=== PATIENT | male | born 1945 | race Caucasian/White ===

== ENCOUNTER 2017-04-21 17:50 | Inpatient (IN) | payer OTHER ==
[~2017-04-21] VITALS: Ht 205.7 cm; Wt 108.9 kg
--- NOTE | ~2017-04-21 | EKG ---
[place] [address] [facility] [employer] [place] [address] ELECTROCARDIOGRAM REPORT Name: MARIELALIBORIO Room #: 443-P ADM IN M.R.#: [id number] Admission: 04/21/17 Attend Phys: James Bronson MD Discharge: Date of : 43 Report #: [id number] THIS REPORT FOR: //name// [facility] ED Test Date: 2017-04-21 Test Time: 18:01:05 Pat Name: LIBORIO SIERRA Department: Room: 443 Gender: M Car Loader: SANDRA : 1945 Requested By: Yuko Morgan Order Number: [id number] MD: Jeffrey Mohr Measurements Intervals [place] Rate: 79 P: 67 NC: 186 QRS: 68 QRSD: 84 T: 45 QT: 284 QTc: 326 Interpretive Statements Sinus rhythm Frequent ventricular premature complexes Nonspecific ST and T wave abnormality No previous ECG available for comparison Electronically Signed On 04-22-2017 8:07:57 [address] [employer] by Jeffrey Mohr [email or web address] <ELECTRONICALLY SIGNED> By: Jeffrey Mohr MD, [facility] 04/22/17 0807 180 00 Jeffrey Mohr MD, FACC /EPI
[2017-04-21 18:08] VITALS: BP 140/65
[2017-04-21 21:07] LABS: ABSOLUTE NEUTROPHILS 7.7 thou/uL (1.4-8.2); BASOPHILS 0.8 % (0.0-2.0); EOSINOPHILS 2.5 % (0.0-3.0); HEMATOCRIT 41.6 % (42.0-52.0); HEMOGLOBIN 14.1 gm/dL (14.0-18.0); LYMPHOCYTES 23.2 % (24.0-44.0); MCH 29.9 pg (26.0-34.0); MCHC 33.9 g/dL (28.0-37.0); MCV 88.3 fL (80.0-100.0); MONOCYTES 10.8 % (1.0-8.0); PLATELET COUNT 157 thou/uL (150-400); POLYS 62.7 % (36.0-66.0); RBC 4.71 mil/uL (4.50-6.00); RDW 14.3 % (10.5-14.5); WBC 12.3 thou/uL (4.0-11.0)
[2017-04-21 21:14] LABS: CALCIUM 8.8 mg/dL (8.5-10.1); CREATININE 1.1 mg/dL (0.7-1.3); POTASSIUM 4.2 mmol/L (3.5-5.1)
[2017-04-21 21:20] LABS: ALBUMIN 3.5 g/dL (3.4-5.0); TOTAL BILIRUBIN 0.6 mg/dL (<0.1-1.0); TOTAL PROTEIN 6.8 g/dL (6.4-8.2)
[2017-04-21] MEDS ORDERED: RANITIDINE 150150 M1 PO (21:33)
[2017-04-21] MEDS ORDERED: PRIMIDONE 250M250 MG PO (21:36)
[2017-04-21] MEDS ORDERED: FINASTERIDE5 MG PO (21:37)
[2017-04-21] MEDS ORDERED: CARDURA4 MG PO (21:38)
[2017-04-21] MEDS ORDERED: MYRBETRIQ50 MG PO (21:40)
[2017-04-21] MEDS ORDERED: THEOCHRON300 MG PO (21:40)
[2017-04-21] MEDS ORDERED: STIOLTO RESPIMAT4 GM INH (21:45)
[2017-04-21] MEDS ORDERED: PROAIR RESPICL90 MCG INH (21:47)
[2017-04-21] MEDS ORDERED: OMEPRAZOLE 20 M20 MG PO (22:06)
[2017-04-21 22:28] VITALS: BP 132/68
[2017-04-21 22:56] VITALS: BP 114/56
[2017-04-22 03:44] VITALS: BP 111/50
[2017-04-22 06:17] LABS: HEMATOCRIT 38.4 % (42.0-52.0); HEMOGLOBIN 13.1 gm/dL (14.0-18.0); MCH 29.9 pg (26.0-34.0); MCHC 34.1 g/dL (28.0-37.0); MCV 87.6 fL (80.0-100.0); RBC 4.38 mil/uL (4.50-6.00); RDW 14.6 % (10.5-14.5); WBC 10.9 thou/uL (4.0-11.0)
[2017-04-22 06:28] LABS: CALCIUM 8.3 mg/dL (8.5-10.1); POTASSIUM 3.9 mmol/L (3.5-5.1)
[2017-04-22 08:00] VITALS: BP 103/71; BP 158/92
[2017-04-22 16:00] VITALS: BP 117/58
[2017-04-22 19:42] VITALS: BP 105/63
[2017-04-23 03:39] VITALS: BP 125/70
[2017-04-23 04:01] LABS: CALCIUM 8.3 mg/dL (8.5-10.1); CREATININE 1.1 mg/dL (0.7-1.3)
[2017-04-23 04:02] LABS: HEMATOCRIT 38.4 % (42.0-52.0); HEMOGLOBIN 13.1 gm/dL (14.0-18.0); MCH 30.3 pg (26.0-34.0); MCHC 34.3 g/dL (28.0-37.0); MCV 88.5 fL (80.0-100.0); RBC 4.33 mil/uL (4.50-6.00); RDW 14.4 % (10.5-14.5); WBC 8.2 thou/uL (4.0-11.0)
[2017-04-23 08:00] VITALS: BP 132/81
[2017-04-23 16:00] VITALS: BP 125/70
[2017-04-23 19:25] VITALS: BP 124/77
[2017-04-24 04:12] VITALS: BP 106/61
[2017-04-24 06:13] LABS: HEMATOCRIT 39.5 % (42.0-52.0); HEMOGLOBIN 13.3 gm/dL (14.0-18.0); MCH 29.8 pg (26.0-34.0); MCHC 33.6 g/dL (28.0-37.0); MCV 88.6 fL (80.0-100.0); RBC 4.46 mil/uL (4.50-6.00); RDW 14.2 % (10.5-14.5); WBC 7.7 thou/uL (4.0-11.0)
[2017-04-24 06:28] LABS: CALCIUM 9.1 mg/dL (8.5-10.1); POTASSIUM 4.1 mmol/L (3.5-5.1)
[2017-04-24 07:12] VITALS: BP 119/72
[2017-04-24] MEDS ORDERED: MUCINEX600 MG PO (12:59)
[2017-04-24] MEDS ORDERED: STIOLTO RESPIMAT4 GM INH (12:59)
[2017-04-24] MEDS ORDERED: LEVAQUIN 750 M750 MG PO (12:59)
[2017-04-24 15:46] VITALS: BP 119/72
== END 2017-04-24 16:54 | disposition home or self-care (01) | DRG 871 ==
LOC: ER 17:50 → EROBS 21:03 → 4S 21:03
PROVIDERS: Hospitalist; Nurse Practitioner Family; Physician Assistant
DX: A41.9 Sepsis, unspecified organism (principal); J18.9 Pneumonia, unspecified organism; J96.00 Acute respiratory failure, unspecified whether with hypoxia or hypercapnia; J44.0 Chronic obstructive pulmonary disease with (acute) lower respiratory infection; F17.210 Nicotine dependence, cigarettes, uncomplicated; K21.9 Gastro-esophageal reflux disease without esophagitis; N40.0 Benign prostatic hyperplasia without lower urinary tract symptoms; Z88.1 Allergy status to other antibiotic agents
CPT/HCPCS: 10195